=== PATIENT | female | born 1995 | race Caucasian/White ===

== ENCOUNTER 2017-05-02 21:55 | Emergency (ER) | payer OTHER ==
[2017-05-02 22:31] VITALS: BP 122/97
--- NOTE | 2017-05-03 00:15 | ED ---
I, Oh,Clarence, scribed for Nery Cheung MD on 05/02/17 at 2257 . - HPI Summary HPI Summary: This 22 y/o female presents to ED for needle stick on RUE #3 at 2145 PM. 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 Needle stick site was washed and bandaged promptly. Needle did not contain any bodily fluid but had medication in it. Pediatric patient was bleeding, and there is possible positive blood exposure to the wound. However pt states that she was wearing gloves at that time. No PMHx. No allergies. Nonsmoker, nondrinker. Negative HTN in FHx. Pt is UTD with tetanus shot. - History of Current Complaint Chief Complaint: EDExposureBodyFluid Stated Complaint: EXPOSURE Time Seen by Provider: 05/02/17 22:32 Needlestick: Hollow Needle Blood on Needle: No Depth of Needlestick: Puncture Bleeding at Site: No Treatment [employer]: Cleaned Wound PMH/Surg Hx/FS Hx/Imm Hx Previously Healthy: Yes - No PMHx Cardiovascular History: Denies: Hx Myocardial Infarction Infectious Disease History: No Infectious Disease History: Denies: Traveled Outside the [place] in Last 30 Days - Family History Known Family History: Negative: Hypertension - Social History Occupation: Employed Full-time Alcohol Use: None Hx Substance Use: No Substance Use Type: Reports: None Hx Tobacco Use: No Smoking Status (MU): Never Smoked Tobacco Review of Systems Negative: Fever Positive: Other - needle stick wound on RUE #3 All Other Systems Reviewed And Are Negative: Yes Physical Exam Triage Information Reviewed: Yes Vital Signs On Initial Exam: Initial Vitals Temp Pulse Resp BP Pulse Ox 98.9 F 68 18 122/97 100 05/02/17 22:29 05/02/17 22:29 05/02/17 22:29 05/02/17 22:29 05/02/17 22:29 Vital Signs Reviewed: Yes Appearance: Positive: Well-Appearing, No Pain Distress Skin: Positive: Warm, Skin Color Reflects Adequate Perfusion, Other - RUE #3 needle stick Eyes: Positive: EOMI, MYKEL Neck: Positive: Supple, Nontender Respiratory/Lung Sounds: Positive: Clear to Auscultation, Breath Sounds Present Cardiovascular: Positive: RRR, Pulses are Symmetrical in both Upper and Lower Extremities. Negative: Murmur, Rub Musculoskeletal: Positive: Strength/ROM Intact Neurological: Positive: Sensory/Motor Intact, Alert, Oriented to Person Place, Time Psychiatric: Positive: Affect/Mood Appropriate AVPU Assessment: Alert Diagnostics - Vital Signs Vital Signs Temp Pulse Resp BP Pulse Ox 05/02/17 22:29 98.9 F 68 18 122/97 100 - Laboratory Lab Statement: Any lab studies that have been ordered have been reviewed, and results considered in the medical decision making process. Needlestick Course/Dx - Course Course Of Treatment: 22 yo female with needle exposure low risk opted for baseline labs with f/u with employee health - Diagnoses Provider Diagnoses: post exposure prophylaxis Discharge - Discharge Plan Condition: Stable Disposition: HOME Patient Education Materials: Needle Stick Injuries (ED) Referrals: Gaurav Gasca MD [Primary Care Provider] - 2 Days The documentation as recorded by the Martin vazquez Soohyun accurately reflects the service I personally performed and the decisions made by , Nery Cheung MD.
[2017-05-04 08:48] LABS: Rapid HIV INT CONT QC Line Present
[2017-05-04 08:49] LABS: Manual Entry Verification GRE0060; Rapid HIV Kit Lot# H017003
== END 2017-05-03 00:37 | disposition home or self-care (01) ==
LOC: ED 21:55
DX: Z77.21 Contact with and (suspected) exposure to potentially hazardous body fluids (principal); T14.8 Other injury of unspecified body region; W46.0XXA Contact with hypodermic needle, initial encounter; Y93.9 Activity, unspecified; Y92.9 Unspecified place or not applicable; Y99.0 Civilian activity done for income or pay; Z11.4 Encounter for screening for human immunodeficiency virus [HIV]
CPT/HCPCS: 36415; 86703; 86706; 86803; 87340; 99282